=== PATIENT | female | born 1980 | race Caucasian/White ===

== ENCOUNTER 2023-07-30 14:35 | Emergency (ER) | payer OTHER ==
[2023-07-30] MEDS ORDERED: Ibuprofen 600 MG Tab PO ONE (15:33)
[2023-07-30] MEDS ORDERED: Acetaminophen 325 MG Tab PO ONE (15:33)
== END 2023-07-30 16:00 | disposition home or self-care (01) ==
LOC: JD.ED 14:35
DX: S63.502A Unspecified sprain of left wrist, initial encounter (principal); Z88.8 Allergy status to other drugs, medicaments and biological substances; V00.211A Fall from ice-skates, initial encounter; Y93.21 Activity, ice skating
CPT/HCPCS: 73110; 99283; A9270; 99282